=== PATIENT | male | born 1980 | race African-American/Black ===

== ENCOUNTER 2025-05-19 09:19 | Emergency (ER) | payer OTHER ==
[~2025-05-19] VITALS: Ht 167.6 cm; Wt 87.0 kg
[2025-05-19 09:22] VITALS: O2SAT 98
[2025-05-19 10:41] LABS: BASOPHILS % 0.7 % (0.0-2.0); EOSINOPHILS % 5.9 % (0.0-5.0); HEMATOCRIT. 45.2 % (42.0-52.0); HEMOGLOBIN. 15.1 g/dL (14.0-18.0); LYMPHOCYTES % 29.9 % (20.0-50.0); MEAN PLATELET VOLUME 9.0 fl (7.4-10.4); MONOCYTES % 9.8 % (2.0-8.0); NEUTROPHILS % 53.7 % (40.0-76.0); PLATELET 209 x1000/uL (130-400); RED BLOOD CELL COUNT 5.21 mill/uL (4.7-6.1); RED CELL DISTRIBUTION WIDTH 13.8 % (11.6-14.6)
[2025-05-19 10:44] LABS: CLARITY URINE CLEAR (CLEAR); COLOR URINE YELLOW (YELLOW); GLUCOSE URINE 2+ (NEGATIVE); KETONES URINE NEGATIVE (NEGATIVE); LEUKOCYTE ESTERASE URINE NEGATIVE (NEGATIVE); NITRITE URINE NEGATIVE (NEGATIVE); OCCULT BLOOD URINE NEGATIVE (NEGATIVE); PH URINE 5.5 (4.5-8.0); PROTEIN URINE TRACE (NEGATIVE); SPECIFIC GRAVITY URINE 1.019 (1.005-1.030); UROBILINOGEN URINE 0.2 E.U./dL (0.2-1.0)
[2025-05-19 10:49] LABS: CREATININE 1.3 mg/dL (0.6-1.3); UREA NITROGEN BLOOD 23 mg/dL (9-23)
[2025-05-19] MEDS: KETOROLAC 30MG/ML VIAL IM ONE (11:07)
[2025-05-19] MEDS: ACETAMINOPHEN 325MG TABLET PO ONE (11:07)
[2025-05-19 11:24] LABS: BACTERIA URINE NONE SEEN; RBC URINE 0-2 /hpf (0-2); SQUAMOUS EPITHELIAL CELL URINE RARE /lpf (RARE/1+); WBC URINE 0-2 /hpf (0-2); YEAST URINE NONE SEEN
[2025-05-19 12:03] LABS: ASPARTATE AMINOTRANSFERASE 19 IU/L (<34); BILIRUBIN DIRECT < 0.1 mg/dL (<=3.0); BILIRUBIN TOTAL 0.3 mg/dL (0.1-1.0); PROTEIN TOTAL 7.4 g/dL (6.0-8.3)
[2025-05-19] MEDS: HYDROCODONE/ACETAMINOPHEN 10/325MG TABLET PO ONE (14:10)
[2025-05-19] MEDS ORDERED: ACET-2708 MT (14:21)
[2025-05-19] MEDS ORDERED: HYDR-4009 MT (14:21)
[2025-05-19 14:54] VITALS: TEMP 37.1
[2025-05-19 15:41] VITALS: BP 169/102; PULSE 84; RESP 14; O2SAT 99
== END 2025-05-19 15:43 | disposition home or self-care (01) ==
LOC: ER 09:19
DX: N13.2 Hydronephrosis with renal and ureteral calculous obstruction (principal); I10 Essential (primary) hypertension; E11.65 Type 2 diabetes mellitus with hyperglycemia; Z86.73 Personal history of transient ischemic attack (TIA), and cerebral infarction without residual deficits; Z79.899 Other long term (current) drug therapy
CPT/HCPCS: 99285; 74176; 80076; 80048; 81003; 85025; 36415; 96372; J1885